=== PATIENT | male | born 2000 | race Caucasian/White ===

== ENCOUNTER 2018-02-23 15:36 | Emergency (ER) | payer OTHER ==
[2018-02-23 15:42] VITALS: BP 126/73
--- NOTE | 2018-02-23 16:00 | EDPHY ---
H & P Stated Complaint: R thumb lac Time Seen by Provider: 02/23/18 15:59 HPI/ROS: HPI: This is a 18-year-old male who presents with Chief Complaint: Right thumb laceration Location: Right thumb Quality: Laceration Duration: Prior to arrival Signs and Symptoms: + bleeding, no radiation, no numbness, no weakness, no tingling, no incontinence, no decreased range of motion, no swelling, + pain, no fever Timing: Acute Severity: Mild Context: Patient is right-hand dominant, presents with complaints of accidentally cutting the tip of his right thumb nail while using a meat soaker to cut Pastrami. This was cooked meat. Patient reports that he felt mild, constant, nonradiating pain but has since resolved. He noted bleeding that would not stop with direct pressure. Patient is unsure of tetanus status. Denies radiation, weakness, paresthesias, decreased range of motion. Modifying Factors: Direct pressure no relief. Comment: ROS: A comprehensive 10 system review of systems is otherwise negative aside from elements mentioned in the history of present illness. MEDICAL/SURGICAL/SOCIAL HISTORY: Medical history: Generally healthy. Does not take any regular medications. Surgical history: Denies Social history: Employed. Denies drug, alcohol, tobacco use. CONSTITUTIONAL: Young adult white male, polite and cooperative, awake and alert , no obvious distress HEENT: Atraumatic and normocephalic. NECK: supple EXTREMITIES: 2/2 pulses, strength 5/5, right thumb the medial aspect distal tip shows approximately 1 in superficial skin avulsion with mild active bleeding. The tip of the lateral portion of the nail proximally of 4th of an inches also removed. DIP/PIP/MCP flexion/extension intact with good light touch sensation. no deformities, no clubbing, no cyanosis or edema. NEUROLOGICAL: no focal neuro deficits. GCS 15. Light touch sensation intact. SKIN: Warm and dry, no erythema. no rash. Good capillary refill. Source: Patient Exam Limitations: No limitations - Personal History Current Tetanus/Diphtheria Vaccine: Unsure Current Tetanus Diphtheria and Acellular Pertussis (TDAP): Unsure - Medical/Surgical History Hx Asthma: No Hx Chronic Respiratory Disease: No Hx Diabetes: No Hx Cardiac Disease: No Hx Renal Disease: No Hx Cirrhosis: No Hx Alcoholism: No Hx HIV/AIDS: No Hx Splenectomy or Spleen Trauma: No - Social History Smoking Status: Never smoked Constitutional: Initial Vital Signs Temperature (C) 36.9 C 02/23/18 15:40 Heart Rate 63 02/23/18 15:40 Respiratory Rate 16 02/23/18 15:40 Blood Pressure 126/73 H 02/23/18 15:40 O2 Sat (%) 96 02/23/18 15:40 O2 Delivery Mode Room Air Allergies/Adverse Reactions: No Known Allergies Allergy (Unverified 02/23/18 15:40) Home Medications: Medication Instructions Recorded NK [No Known Home Meds] 02/23/18 Medical Decision Making Procedures: Procedure: Right thumb bleeding control. After verbal consent was obtained, the patient was anesthetized with 2 mL of 1% lidocaine without epinephrine. The anterior epistaxis was identified. The patient was treated with surgery foam and tube gauze. Following the procedure the patient was re-examined and the bleeding was well controlled. The patient tolerated the procedure well. The procedure was performed by myself. ED Course/Re-evaluation: Tetanus booster given. Local anesthesia provided and irrigated copiously. Hemostasis achieved with Surgifoam and tube gauze applied. Verbal and written wound care instructions provided. No signs of neurovascular compromise/tenting of skin/compartment syndrome/ extremities and joints examined above and below area of concern and are neurovascularly intact. This patient was seen under the supervision of my secondary supervising physician. I evaluated care for this patient independently. Discussed this patient with Dr. Mckeon. Differential Diagnosis: Differential diagnosis includes but is not limited to foreign body, nail injury , tendon injury, nerve injury, laceration. Departure - Departure Disposition: Home, Routine, Self-Care Clinical Impression: Avulsion of skin of finger Qualifiers: Encounter type: initial encounter Qualified Code(s): S61.209A - Unspecified open wound of unspecified finger without damage to nail, initial encounter Nail avulsion, finger Qualifiers: Encounter type: initial encounter Qualified Code(s): S61.309A - Unspecified open wound of unspecified finger with damage to nail, initial encounter Condition: Good Instructions: Nail Avulsion (ED), Laceration Without Closure (ED) Additional Instructions: Keep the dressing dry and in place for 48 hours. After 48 hours, you may remove the dressing; wash the site daily with mild soap and water; then pat dry. Apply topical antibiotic ointment daily and clean sterile dressing until fully healed. Take Tylenol 650 mg every 4 hours and/or Ibuprofen 600 mg every 8 hours with food as needed for pain. Return to the ER immediately if you experience redness, red streaks, have fevers /chills, flu like symptoms, limited range of motion, or any other symptoms that concern you. Referrals: [facility],. [Clinic] - As per Instructions
[2018-02-23] MEDS ORDERED: TDAP ADULT 0.5 ML INJ (BOOSTRIX) IM ONE (16:08)
== END 2018-02-23 16:27 | disposition home or self-care (01) ==
DX: S61.111A Laceration without foreign body of right thumb with damage to nail, initial encounter (principal); W29.0XXA Contact with powered kitchen appliance, initial encounter; Y93.G3 Activity, cooking and baking; Z23 Encounter for immunization

== ENCOUNTER → 2018-09-26 | Outpatient (CLI) | payer OTHER | LOC: FIMAGING 15:54 ==